=== PATIENT | female | born 1990 | race Caucasian/White ===

== ENCOUNTER → 2016-12-25 | Outpatient (CLI) | payer OTHER ==
[~2016-12-25] VITALS: Ht 157.5 cm; Wt 84.8 kg
[~2016-12-25] MED LIST: AMOXICILLIN875 MG PO; FLEXERIL10 MG PO; JUNEL FE 1/21 TABLET PO; ZANTAC150 MG PO
== END | disposition home or self-care (01) ==
LOC: AMB 13:30
DX: K22.10 Ulcer of esophagus without bleeding (principal); K64.8 Other hemorrhoids; K21.9 Gastro-esophageal reflux disease without esophagitis; R14.0 Abdominal distension (gaseous); R19.7 Diarrhea, unspecified; K92.1 Melena; Z87.891 Personal history of nicotine dependence; Z82.69 Family history of other diseases of the musculoskeletal system and connective tissue
CPT/HCPCS: 88305; J2704